=== PATIENT | male | born 1955 | race Caucasian/White ===

== ENCOUNTER 2019-07-09 14:26 | Outpatient (CLI) | payer MEDICARE ==
--- NOTE | 2019-07-10 00:04 | XRAY Report ---
Reason: GASTRO-ESOPHAGEAL REFLUX DISEASE WITH ESOPHAGITIS Procedure Date: 07/09/2019 Accession Number: [id number] / [id number] Procedure: XRN - Chest 2 View X-Ray CPT Code: 87025 FULL RESULT: EXAM: CHEST RADIOGRAPHY EXAM DATE: 07/09/2019 02:41 PM. CLINICAL HISTORY: GASTRO-ESOPHAGEAL REFLUX DISEASE WITH ESOPHAGITIS. COMPARISON: CHEST 2 VIEW PA/LAT 12/30/2015 9:18 AM. TECHNIQUE: 2 views. FINDINGS: Lungs/Pleura: No focal opacities evident. No pleural effusion. No pneumothorax. Normal volumes. Mediastinum: Heart and mediastinal contours are unremarkable. Other: Mild T8 compression deformity, appears chronic. IMPRESSION: No acute cardiopulmonary disease seen. RADIA
== END 2019-07-09 14:27 | disposition home or self-care (01) ==
LOC: DI.N 14:26
PROVIDERS: ATTEND Internal Medicine
DX: R69 Illness, unspecified (principal); K21.0 Gastro-esophageal reflux disease with esophagitis
CPT/HCPCS: 71046

== ENCOUNTER 2019-12-25 21:23 | Emergency (ER) | payer MEDICARE, OTHER ==
[2019-12-25] MEDS ORDERED: IPRATROPIUM/ALBUTEROL 3 ML NEB INH STA (21:41)
[2019-12-25] MEDS ORDERED: BENZONATATE 100 MG CAPSULE PO STA (21:41)
[2019-12-25] MEDS ORDERED: ALBUTEROL NEB 2.5 MG/3 ML INH STA ×2 (21:41→22:28)
[2019-12-25] MEDS ORDERED: guaiFENesin 600 MG TABLET PO ONE (21:55)
[2019-12-25] MEDS ORDERED: guaiFENesin 600 MG TABLET PO SCH (22:00)
[2019-12-25] MEDS ORDERED: predniSONE 20 MG TABLET PO STA (22:27)
--- NOTE | 2019-12-25 23:10 | ED Physician Documentation ---
History of Present Illness - Stated complaint Stated Complaint: SOA/CHOKING - Chief complaint Chief Complaint: Resp - History obtained from History obtained from: Patient (Patient Presented emergency room with 3 weeks long respiratory problem including cough congestion. He has been seen by and diagnosed with bronchitis. Chest x-ray was done on Sunday and was told to be negative. Patient went to antibiotic, the cough is not improved. Today and yesterday it has been severe coughing spell the patient almost gag. In emergency room patient is able to talk to me very clearly with no respiratory distress. There has been no fever no chills. No nausea no vomiting. Cough is worse in the morning and evening.), Family - History of Present Illness Timing: How many weeks ago (3) Review of Systems Ten Systems: 10 systems reviewed and negative Constitutional: reports: Reviewed and negative. denies: Fever Eyes: reports: Reviewed and negative Ears: reports: Reviewed and negative Nose: reports: Reviewed and negative Throat: reports: Reviewed and negative Cardiac: reports: Reviewed and negative Respiratory: reports: Cough GI: reports: Reviewed and negative : reports: Reviewed and negative Skin: reports: Reviewed and negative Musculoskeletal: reports: Reviewed and negative Neurologic: reports: Reviewed and negative Psychiatric: reports: Reviewed and negative Endocrine: reports: Reviewed and negative Immunocompromised: reports: Reviewed and negative PD PAST MEDICAL HISTORY - Past Medical History Cardiovascular: Hypertension, High cholesterol Respiratory: Pneumonia Endocrine/Autoimmune: None : Benign prostate hypertrophy Psych: None Musculoskeletal: None Derm: None - Past Surgical History Past Surgical History: Yes Ortho: Spine surgery - Present Medications Home Medications: Ambulatory Orders Medication Instructions Recorded Confirmed Aspirin Chewable [St Bradley 81 mg PO DAILY 12/25/19 12/25/19 Aspirin] Lisinopril [Zestril] 2.5 mg PO DAILY 12/25/19 12/25/19 Metoprolol Succinate [Toprol Xl] 25 mg PO DAILY 12/25/19 12/25/19 Rosuvastatin Calcium [Crestor] 5 mg PO DAILY 12/25/19 12/25/19 hydroCHLOROthiazide 12.5 mg PO DAILY 12/25/19 12/25/19 [Hydrochlorothiazide] Albuterol Sulf [Ventolin Hfa 60 puffs INH Q4HR #1 inhaler 12/26/19 Inhaler] Benzonatate [Tessalon Perle] 200 mg PO BID #30 capsule 12/26/19 Methylprednisolone [Medrol Dose 1 each PO .PACKAGEINSTRUCTIONS 6 12/26/19 Pack] Days #1 each diphenhydrAMINE [Benadryl] 50 mg PO HS #30 capsule 12/26/19 - Allergies Allergies/Adverse Reactions: Allergies Allergy/AdvReac Type Severity Reaction Status Date / Time No Known Drug Allergies Allergy Verified 12/25/19 21:29 - Social History Does the pt smoke?: No Smoking Status: Never smoker Does the pt drink ETOH?: Yes Does the pt have substance abuse?: No - Immunizations Immunizations are current?: Yes - POLST Patient has POLST: No PD ED PE NORMAL - Vitals Vital signs reviewed: Yes - General General: Alert and oriented X 3, No acute distress - HEENT HEENT: Atraumatic, PERRL, EOMI - Neck Neck: Supple, no meningeal sign, No bony TTP, No adenopathy - Cardiac Cardiac: RRR, No murmur - Respiratory Respiratory: Other (Bilateral inspiratory and expiratory wheezes, no dullness to percussion,) - Abdomen Abdomen: Normal bowel sounds, Soft, Non tender, Non distended - Derm Derm: Warm and dry - Extremities Extremities: No deformity - Neuro Neuro: Alert and oriented X 3 - Psych Psych: Normal mood, Normal affect Results - Vitals Vitals: Vital Signs - 24 hr 12/25/19 12/25/19 12/25/19 21:26 21:55 22:01 Temperature 36.6 C Heart Rate 94 88 96 Respiratory 18 18 18 Rate Blood Pressure 144/85 H O2 Saturation 95 12/25/19 12/25/19 12/25/19 22:41 23:01 23:41 Temperature Heart Rate 101 H 95 103 H Respiratory 18 18 Rate Blood Pressure 138/69 H O2 Saturation 94 93 12/26/19 12/26/19 00:16 00:24 Temperature Heart Rate 94 96 Respiratory 18 17 Rate Blood Pressure 132/76 H O2 Saturation 97 Oxygen O2 Source Room air PD MEDICAL DECISION MAKING - ED course Complexity details: d/w patient, d/w family ED course: This patient has been with 3 weeks of prolonged cough. My examination there is inspiratory and expiratory wheezes. He is given impression of reactive airway disease secondary to upper respiratory tract infection. X-ray was done 2 days ago and was "negative". I do not see the need for x-ray today He has been receiving DuoNeb albuterol x3. Over the management emergency room for 2 hours, his cough is still improved. He's never- in his respiratory distress. He is given impression number reactive airway disease. He will be given prescription of Medrol Dosepak, albuterol MDI inhaler and instructed to use with a spacer, Tessalon Perles,. He is asked to follow with his primary care doctor for further management. We also talked about cough drops which can may act as a distractor to the cough reflex and pharyngeal reflex. If there is further distress, return to the emergency room for further management. Patient is reassessed at 1150. His breathing has improve although according to him, "it is coming back". I have reassessed his lung and he does still have bilateral wheezes during deep inspiration and expiration. We will repeat a dose of DuoNeb, albuterol, and add Benadryl 50 mg, ibuprofen 800 mg. Patient is reassessed at 1230, at this time he is feeling much improved. He is almost ready to go home. We talked about MDI inhaler with a spacer. We talked about taking Medrol Dosepak and follow-up with primary care doctor. If there is respiratory distress, he is to come back to the emergency room immediately for further management. Departure - Departure Disposition: 01 Home, Self Care Clinical Impression: Reactive airway disease Qualifiers: Asthma severity: moderate Asthma persistence: persistent Asthma complication type: uncomplicated Qualified Code(s): J45.40 - Moderate persistent asthma, uncomplicated Condition: Stable Instructions: ED Reactive Airway Disease Prescriptions: Albuterol Sulf [Ventolin Hfa Inhaler] 60 puffs INH Q4HR #1 inhaler Benzonatate [Tessalon Perle] 200 mg PO BID #30 capsule diphenhydrAMINE [Benadryl] 50 mg PO HS #30 capsule Methylprednisolone [Medrol Dose Pack] 1 each PO .PACKAGEINSTRUCTIONS 6 Days #1 each Comments: Please take your steroid package, albuterol with a spacer, Benadryl, and follow- up with your primary care doctor in the next 3 to 5 days for reevaluation. If there is respiratory distress, return to the emergency room immediately.
[2019-12-25] MEDS ORDERED: IPRATROPIUM/ALBUTEROL 3 ML NEB INH PRN (23:50)
[2019-12-25] MEDS ORDERED: ALBUTEROL NEB 2.5 MG/3 ML INH ONE (23:50)
[2019-12-25] MEDS ORDERED: diphenhydrAMINE 25 MG CAPSULE PO STA (23:51)
[2019-12-25] MEDS ORDERED: IBUPROFEN 800 MG TABLET PO STA (23:51)
[2019-12-26 00:25] VITALS: BP 132/76
== END 2019-12-26 00:45 | disposition home or self-care (01) ==
LOC: ED 21:23
DX: J45.40 Moderate persistent asthma, uncomplicated (principal); J06.9 Acute upper respiratory infection, unspecified; I10 Essential (primary) hypertension; Z79.82 Long term (current) use of aspirin
CPT/HCPCS: 94640; 96361; 96374; 96375; 99284; A9270; J7512

== ENCOUNTER 2020-01-19 12:57 | Outpatient (CLI) | payer MEDICARE, OTHER | END 2020-01-19 12:58 | disposition critical access hospital (66) | LOC: EMS 12:57 | PROVIDERS: ATTEND Surgery | DX: M54.9 Dorsalgia, unspecified (principal); R05 Cough | CPT/HCPCS: A0425; A0429 ==

== ENCOUNTER 2020-01-19 13:11 | Emergency (ER) | payer MEDICARE, OTHER ==
[2020-01-19 13:16] VITALS: BP 157/80
--- NOTE | 2020-01-19 13:50 | XRAY Report ---
Reason: felt a pop after a coughing fit Procedure Date: 01/19/2020 Accession Number: [id number] / [id number] Procedure: XR - Ribs w/PA Chest RT CPT Code: Final Report FULL RESULT: EXAM: RIGHT RIB RADIOGRAPHY EXAM DATE: 01/19/2020 01:32 PM. CLINICAL HISTORY: Collins a pop after a coughing fit. COMPARISON: CHEST 2 VIEW 07/09/2019 2:45 PM. TECHNIQUE: 1 view of the chest and 2 views of the ribs. FINDINGS: Bones: Normal. No fracture or bone lesion. Lungs: No focal opacities. No pneumothorax. No pleural effusions. Mediastinum: Heart size is normal. There is mild aortic tortuosity. Other: None. IMPRESSION: No rib fracture or pneumothorax. RADIA
[2020-01-19] MEDS ORDERED: oxyCODONE 5 MG TABLET PO STA (16:58)
--- NOTE | 2020-01-19 17:07 | ED Physician Documentation ---
History of Present Illness - Stated complaint Stated Complaint: BACK PX - Chief complaint Chief Complaint: Back Pain - History obtained from History obtained from: Patient, Family - History of Present Illness Timing: Today Pain level max: 7 Pain level now: 7 Improved by: rest Worsened by: movement - Additonal information Additional information: Patient states that he was coughing today when he felt a pop in the posterior right Aspect of his ribs. Worse with movement and better with rest. Did not take anything for the pain. No numbness or tingling. No midline back pain. No loss of bowel or bladder control. Review of Systems Constitutional: denies: Fever, Chills Cardiac: denies: Palpitations Respiratory: reports: Cough (for 2 monts). denies: Wheezing GI: denies: Vomiting, Diarrhea : denies: Incontinent Skin: denies: Rash Musculoskeletal: denies: Neck pain, Back pain Neurologic: denies: Focal weakness, Numbness PD PAST MEDICAL HISTORY - Past Medical History Past Medical History: Yes Cardiovascular: Hypertension, High cholesterol Respiratory: Pneumonia Endocrine/Autoimmune: None : Benign prostate hypertrophy Psych: None Musculoskeletal: None Derm: None - Past Surgical History Past Surgical History: Yes Ortho: Spine surgery - Present Medications Home Medications: Ambulatory Orders Medication Instructions Recorded Confirmed Aspirin Chewable [St Bradley 81 mg PO DAILY 12/25/19 12/25/19 Aspirin] Lisinopril [Zestril] 2.5 mg PO DAILY 12/25/19 12/25/19 Metoprolol Succinate [Toprol Xl] 25 mg PO DAILY 12/25/19 12/25/19 Rosuvastatin Calcium [Crestor] 5 mg PO DAILY 12/25/19 12/25/19 hydroCHLOROthiazide 12.5 mg PO DAILY 12/25/19 12/25/19 [Hydrochlorothiazide] Albuterol Sulf [Ventolin Hfa 60 puffs INH Q4HR #1 inhaler 12/26/19 Inhaler] Benzonatate [Tessalon Perle] 200 mg PO BID #30 capsule 12/26/19 Methylprednisolone [Medrol Dose 1 each PO .PACKAGEINSTRUCTIONS 6 12/26/19 Pack] Days #1 each diphenhydrAMINE [Benadryl] 50 mg PO HS #30 capsule 12/26/19 Cyclobenzaprine [Flexeril] 10 mg PO TID PRN #20 tablet 01/19/20 Oxycodone HCl/Acetaminophen 1 - 2 each PO Q6H PRN #14 tablet 01/19/20 [Percocet 5-325 mg Tablet] - Allergies Allergies/Adverse Reactions: Allergies Allergy/AdvReac Type Severity Reaction Status Date / Time No Known Drug Allergies Allergy Verified 01/19/20 13:16 - Social History Does the pt smoke?: No Smoking Status: Never smoker Does the pt drink ETOH?: Yes Does the pt have substance abuse?: No - Immunizations Immunizations are current?: Yes - POLST Patient has POLST: No PD ED PE NORMAL - Vitals Vital signs reviewed: Yes - General General: Alert and oriented X 3, No acute distress - HEENT HEENT: Moist mucous membranes - Neck Neck: Supple, no meningeal sign - Cardiac Cardiac: RRR - Respiratory Respiratory: No respiratory distress, Clear bilaterally, Other (TTP posterior R ribs. no ecchymosis or crepitus) - Abdomen Abdomen: Soft, Non tender, Non distended - Back Back: No spinal TTP - Derm Derm: Warm and dry - Extremities Extremities: No calf tenderness / cord, Other (Normal bilateral lower extremity patellar and ankle jerk reflexes. Normal great toe extension bilaterally. no saddle anesthesia) - Neuro Neuro: Alert and oriented X 3, No motor deficit, No sensory deficit - Psych Psych: Normal mood, Normal affect Results - Vitals Vitals: Vital Signs - 24 hr 01/19/20 13:11 Temperature 36.6 C Heart Rate 65 Respiratory 18 Rate Blood Pressure 157/80 H O2 Saturation 97 Oxygen O2 Source Room air - Rads (name of study) rib xray Radiology: Prelim report reviewed, EMP read contemporaneously, See rad report (No acute abnormality) PD MEDICAL DECISION MAKING - ED course Complexity details: reviewed results, re-evaluated patient, considered differential, d/w patient, d/w family ED course: Patient with likely minor rib fracture. We will place him on pain medication for home. No midline tenderness. No crepitus or ecchymosis. Pneumothorax. Patient and family counseled regarding signs and symptoms for which I believe and urgent re-evaluation would be necessary. Patient with good understanding of and agreement to plan and is comfortable going home at this time This document was made in part using voice recognition software. While efforts are made to proofread this document, sound alike and grammatical errors may occur. Departure - Departure Disposition: 01 Home, Self Care Clinical Impression: Rib pain on right side Condition: Good Instructions: ED Contusion Vs Minor Fx Rib Follow-Up: JAN JOEL DO [Primary Care Provider] - Within 1 week Prescriptions: Cyclobenzaprine [Flexeril] 10 mg PO TID PRN #20 tablet PRN Reason: Spasms Oxycodone HCl/Acetaminophen [Percocet 5-325 mg Tablet] 1 - 2 each PO Q6H PRN #14 tablet PRN Reason: pain Comments: Return if you worsen. Follow-up with your doctor for further care. Continue to take a deep breath and hold it at least every hour at home. Do not drink alcohol or drive while on narcotic pain medicine. Note that many narcotic pain relievers also contain tylenol/acetaminophen. Please ensure that your total dose of acetaminophen from all sources does not exceed 3 grams (3000mg) per day. You may constipated on this medication, take a stool softener such as "Colace" twice a day while you are on it. Also recommend a [id number] laxative such as senna or MiraLAX any day that you do not have a bowel movement. If you received narcotic pain medication in the emergency department, do not drive or operate machinery for the next 24 hours. Discharge Date/Time: 01/19/20 17:22
== END 2020-01-19 17:22 | disposition home or self-care (01) ==
LOC: EDUNIT# → ED 13:11
DX: R07.81 Pleurodynia (principal); I10 Essential (primary) hypertension
CPT/HCPCS: 71101; 99283; 99284; A9270

== ENCOUNTER 2021-05-04 15:27 | Outpatient (CLI) | payer MEDICARE, OTHER | END 2021-05-04 15:28 | disposition home or self-care (01) | LOC: COV 15:27 | PROVIDERS: ATTEND Family Medicine | DX: Z20.822 Contact with and (suspected) exposure to COVID-19 (principal) ==

== ENCOUNTER 2021-06-09 07:40 | Outpatient (CLI) | payer MEDICARE, OTHER ==
[2021-06-10 11:46] LABS: BASOPHILS # (AUTO) 0.1 10^3/uL (0.0-0.1); BASOPHILS % (AUTO) 1.3 %; EOSINOPHILS # (AUTO) 0.3 10^3/uL (0.0-0.7); EOSINOPHILS % (AUTO) 5.3 %; HCT - HEMATOCRIT 41.2 % (42.0-52.0); LYMPHOCYTES # (AUTO) 0.9 10^3/uL (1.5-3.5); LYMPHOCYTES % (AUTO) 19.5 %; MEAN CORPUSCULAR HEMOGLOBIN 32.2 pg (27.0-31.0); MEAN CORPUSCULAR VOLUME 94.7 fL (80.0-94.0); MEAN PLATELET VOLUME 10.6 fL (7.4-11.4); MONOCYTES # (AUTO) 0.4 10^3/uL (0.0-1.0); MONOCYTES % (AUTO) 8.8 %; NEUTROPHILS # (AUTO) 3.1 10^3/uL (1.5-6.6); NEUTROPHILS % (AUTO) 64.7 %; PLT - PLATELET COUNT 178 10^3/uL (130-450); RED BLOOD COUNT 4.35 10^6/uL (4.70-6.10); RED CELL DISTRIBUTION WIDTH 12.9 % (12.0-15.0); WHITE BLOOD COUNT 4.8 x10^3/uL (4.8-10.8)
[2021-06-10 12:19] LABS: ALBUMIN 4.1 g/dL (3.2-5.5); ALBUMIN/GLOBULIN RATIO 1.3 (1.0-2.2); ALKALINE PHOSPHATASE 42 IU/L (42-121); ALT ALANINE AMINOTRANSFERASE 20 IU/L (10-60); AST ASPARTATE AMINOTRANSFERASE 24 IU/L (10-42); BUN - BLOOD UREA NITROGEN 26 mg/dL (6-20); CALCIUM 8.9 mg/dL (8.5-10.3); CARBON DIOXIDE - CO2 28 mmol/L (21-32); CHLORIDE 101 mmol/L (101-111); CHOL/HDL RATIO 3.1 (<5.0); CHOLESTEROL 184 mg/dL; CREATININE 1.2 mg/dL (0.6-1.2); GFR - MDRD 60 (>89); GLUCOSE 115 mg/dL (70-100); HDL CHOLESTEROL 59 mg/dL; LDL CHOLESTEROL,CALCULATED 110 mg/dL; LDL/HDL RATIO 1.9 (<3.6); POTASSIUM 4.4 mmol/L (3.5-5.0); SODIUM 137 mmol/L (135-145); TOTAL PROTEIN 7.2 g/dL (6.7-8.2); TRIGLYCERIDES 74 mg/dL; VLDL CHOLESTEROL 15 mg/dL
[2021-06-10 12:28] LABS: THYROID STIMULATING HORMONE 1.7 uIU/mL (0.34-5.60)
== END 2021-06-10 23:59 | disposition home or self-care (01) ==
LOC: LAB.WCP 07:40
PROVIDERS: ATTEND Physician Assistant Medical
DX: I10 Essential (primary) hypertension (principal); E78.5 Hyperlipidemia, unspecified; Z12.5 Encounter for screening for malignant neoplasm of prostate; I48.0 Paroxysmal atrial fibrillation
CPT/HCPCS: 36415; 80053; 80061; 84443; 85025; G0103; 83721; 84153

== ENCOUNTER 2021-08-24 07:31 | Outpatient (CLI) | payer MEDICARE, OTHER | END 2021-08-24 07:32 | disposition EMS.NT | LOC: EMS 07:31 | DX: I49.9 Cardiac arrhythmia, unspecified (principal) ==

== ENCOUNTER 2021-10-14 07:56 | Outpatient (CLI) | payer MEDICARE, OTHER ==
[2021-10-14 12:06] LABS: BASOPHILS # (AUTO) 0.1 10^3/uL (0.0-0.1); BASOPHILS % (AUTO) 1.6 %; EOSINOPHILS # (AUTO) 0.2 10^3/uL (0.0-0.7); EOSINOPHILS % (AUTO) 4.6 %; HCT - HEMATOCRIT 40.6 % (42.0-52.0); HGB - HEMOGLOBIN 13.8 g/dL (14.0-18.0); LYMPHOCYTES # (AUTO) 1.1 10^3/uL (1.5-3.5); LYMPHOCYTES % (AUTO) 24.5 %; MEAN CORPUSCULAR VOLUME 94.2 fL (80.0-94.0); MEAN PLATELET VOLUME 10.3 fL (7.4-11.4); MONOCYTES # (AUTO) 0.5 10^3/uL (0.0-1.0); MONOCYTES % (AUTO) 10.4 %; NEUTROPHILS # (AUTO) 2.5 10^3/uL (1.5-6.6); NEUTROPHILS % (AUTO) 58.7 %; PLT - PLATELET COUNT 200 10^3/uL (130-450); RED BLOOD COUNT 4.31 10^6/uL (4.70-6.10); RED CELL DISTRIBUTION WIDTH 12.8 % (12.0-15.0); WHITE BLOOD COUNT 4.3 x10^3/uL (4.8-10.8)
[2021-10-14 12:31] LABS: ALBUMIN/GLOBULIN RATIO 1.2 (1.0-2.2); ALKALINE PHOSPHATASE 45 IU/L (42-121); ALT ALANINE AMINOTRANSFERASE 16 IU/L (10-60); AST ASPARTATE AMINOTRANSFERASE 22 IU/L (10-42); BILIRUBIN,TOTAL 0.7 mg/dL (0.2-1.0); BUN - BLOOD UREA NITROGEN 27 mg/dL (6-20); CALCIUM 8.7 mg/dL (8.5-10.3); CARBON DIOXIDE - CO2 26 mmol/L (21-32); CHLORIDE 106 mmol/L (101-111); CREATININE 1.2 mg/dL (0.6-1.2); GFR - MDRD 60 (>89); GLUCOSE 99 mg/dL (70-100); POTASSIUM 4.4 mmol/L (3.5-5.0); SODIUM 137 mmol/L (135-145); TOTAL PROTEIN 7.3 g/dL (6.7-8.2)
[2021-10-14 12:52] LABS: CRP - C-REACTIVE PROTEIN < 1.0 mg/dL (0-1.0)
== END 2021-10-14 23:59 | disposition home or self-care (01) ==
LOC: LAB.WCP 07:56
PROVIDERS: ATTEND Physician Assistant Medical
DX: R20.2 Paresthesia of skin (principal)
CPT/HCPCS: 36415; 80053; 82607; 85025; 85651; 86140

== ENCOUNTER 2021-11-08 07:45 | Outpatient (CLI) | payer MEDICARE, OTHER ==
[2021-11-08] MEDS ORDERED: GADOBUTROL 10 MMOL/10 ML VIAL ONE (08:02)
--- NOTE | 2021-11-08 14:51 | MRI Report ---
PROCEDURE: Brain W/WO INDICATIONS: LEFT FACIAL PARESTHESIA CONTRAST: IV CONTRAST: Gadavist ml: 9.7 TECHNIQUE: Noncontrast axial T1 spin echo, axial T2 fast spin echo, sagittal and axial FLAIR, coronal T2 fast sp in echo, axial gradient echo, axial diffusion and ADC through the brain. After the administration of contrast, axial and coronal T1 spin echo with fat saturation through the brain. COMPARISON: None. FINDINGS: Image quality: Excellent. CSF spaces: Basal cisterns are patent. No extra-axial fluid collections. Ventricles are normal in size and shape. Brain: No midline shift. No intracranial bleeds or masses. No abnormal intracranial enhancement. There is minimal age-appropriate brain parenchymal volume loss. The brainstem appears normal. Diffus ion-weighted images demonstrate no acute ischemic insults. No chronic ischemic insults. Normal intr avascular flow voids are present. Skull and face: Calvarial marrow is normal in signal. Orbits appear normal. Sinuses: Sinuses and mastoids appear clear. IMPRESSION: Normal age appropriate MRI of the brain. Reviewed by: Monroe Palm MD on 11/08/2021 2:50 PM PST Approved by: Monroe Palm MD on 11/08/2021 2:50 PM PST Station ID: [id number]
[2021-11-08] MEDS ORDERED: GADOBUTROL 10 MMOL/10 ML VIAL IVP ONE (16:29)
== END 2021-11-08 07:46 | disposition home or self-care (01) ==
LOC: DI 07:45
PROVIDERS: ATTEND Physician Assistant Medical
DX: R20.2 Paresthesia of skin (principal)
CPT/HCPCS: 70553; A9585

== ENCOUNTER 2021-12-21 08:00 | Outpatient (CLI) | payer MEDICARE, OTHER ==
[2021-12-21 12:27] LABS: ALBUMIN 4.5 g/dL (3.2-5.5); ALBUMIN/GLOBULIN RATIO 1.3 (1.0-2.2); ALKALINE PHOSPHATASE 44 IU/L (42-121); ALT ALANINE AMINOTRANSFERASE 22 IU/L (10-60); AST ASPARTATE AMINOTRANSFERASE 24 IU/L (10-42); BILIRUBIN,TOTAL 0.8 mg/dL (0.2-1.0); BUN - BLOOD UREA NITROGEN 25 mg/dL (6-20); CARBON DIOXIDE - CO2 26 mmol/L (21-32); CHLORIDE 104 mmol/L (101-111); CHOL/HDL RATIO 2.7 (<5.0); CHOLESTEROL 176 mg/dL; CREATININE 1.1 mg/dL (0.6-1.2); GFR - MDRD 67 (>89); GLUCOSE 102 mg/dL (70-100); HDL CHOLESTEROL 65 mg/dL; LDL CHOLESTEROL,CALCULATED 99 mg/dL; LDL/HDL RATIO 1.5 (<3.6); POTASSIUM 4.4 mmol/L (3.5-5.0); SODIUM 136 mmol/L (135-145); TOTAL PROTEIN 7.9 g/dL (6.7-8.2); TRIGLYCERIDES 62 mg/dL; VLDL CHOLESTEROL 12 mg/dL
== END 2021-12-21 23:59 | disposition home or self-care (01) ==
LOC: LAB.WCP 08:00
PROVIDERS: ATTEND Physician Assistant Medical
DX: E78.5 Hyperlipidemia, unspecified (principal)
CPT/HCPCS: 36415; 80053; 80061; 83721

== ENCOUNTER 2022-09-07 07:23 | Outpatient (CLI) | payer MEDICARE, OTHER ==
[2022-09-07 12:33] LABS: ALBUMIN/GLOBULIN RATIO 1.3 (1.0-2.2); ALKALINE PHOSPHATASE 42 IU/L (42-121); ALT ALANINE AMINOTRANSFERASE 20 IU/L (10-60); AST ASPARTATE AMINOTRANSFERASE 23 IU/L (10-42); BILIRUBIN,TOTAL 0.8 mg/dL (0.2-1.0); BUN - BLOOD UREA NITROGEN 25 mg/dL (6-20); CALCIUM 8.9 mg/dL (8.5-10.3); CARBON DIOXIDE - CO2 26 mmol/L (21-32); CHLORIDE 104 mmol/L (101-111); CHOL/HDL RATIO 2.7 (<5.0); CHOLESTEROL 175 mg/dL; CREATININE 1.2 mg/dL (0.6-1.2); GFR - MDRD 60 (>89); GLUCOSE 110 mg/dL (70-100); HDL CHOLESTEROL 66 mg/dL; LDL CHOLESTEROL,CALCULATED 96 mg/dL; LDL/HDL RATIO 1.5 (<3.6); POTASSIUM 4.5 mmol/L (3.5-5.0); SODIUM 136 mmol/L (135-145); TOTAL PROTEIN 7.2 g/dL (6.7-8.2); TRIGLYCERIDES 64 mg/dL; VLDL CHOLESTEROL 13 mg/dL
== END 2022-09-07 07:24 | disposition home or self-care (01) ==
LOC: LAB.N 07:23
PROVIDERS: ATTEND Physician Assistant Medical
DX: E78.5 Hyperlipidemia, unspecified (principal); Z12.5 Encounter for screening for malignant neoplasm of prostate
CPT/HCPCS: 36415; 80053; 80061; G0103; 83721; 84153

== ENCOUNTER 2022-11-25 10:25 | Outpatient (CLI) | payer MEDICARE, OTHER ==
--- NOTE | 2022-11-25 14:42 | XRAY Report ---
PROCEDURE: Abdomen 2 View X-Ray INDICATIONS: EPIGASTRIC PAIN TECHNIQUE: 2 views of the abdomen were acquired. COMPARISON: None FINDINGS: Surgical changes and devices: None. Bowel: No pneumoperitoneum. The bowel gas pattern is normal. Nonspecific gaseous distention of sma ll bowel left upper quadrant without air-fluid level Soft tissues: No masses; visualized solid organ contours appear normal in size. No suspicious abdom inal calcifications. Bones: No suspicious bony abnormalities. IMPRESSION: Nonspecific small bowel gaseous distention may reflect ileus or enteritis. No evidence o f obstruction Reviewed by: Cristopher Dyer MD on 11/25/2022 1:41 PM AKST Approved by: Cristopher Dyer MD on 11/25/2022 1:41 PM AKST Station ID: [id number]
== END 2022-11-25 10:26 | disposition home or self-care (01) ==
LOC: DI 10:25
PROVIDERS: ATTEND Physician Assistant Medical
DX: R10.13 Epigastric pain (principal)

== ENCOUNTER 2022-11-30 08:00 | Outpatient (CLI) | payer MEDICARE, OTHER ==
[2022-11-30 14:46] LABS: SARS-CoV-2 -RESP PCR PANEL NOT DETECTED
[2022-11-30 14:47] LABS: INFLUENZA A- RESP PCR PANEL NOT DETECTED; INFLUENZA B - RESP PCR PANEL NOT DETECTED; RSV- RESP PCR PANEL NOT DETECTED
== END 2022-11-30 23:59 | disposition home or self-care (01) ==
LOC: LAB.WCP 08:00
PROVIDERS: ATTEND Physician Assistant Medical
DX: J06.9 Acute upper respiratory infection, unspecified (principal); Z20.822 Contact with and (suspected) exposure to COVID-19
CPT/HCPCS: 87637

== ENCOUNTER 2022-12-06 14:20 | Outpatient (CLI) | payer MEDICARE, OTHER ==
--- NOTE | 2022-12-06 16:22 | XRAY Report ---
PROCEDURE: Chest 2 View X-Ray INDICATIONS: URI TECHNIQUE: 2 views of the chest were acquired. COMPARISON: 01/19/2020 FINDINGS: Surgical changes and devices: None. Lungs and pleura: No pleural effusions or pneumothorax. Lungs are clear. Mediastinum: Mediastinal contours are normal. Heart size is normal. Bones and chest wall: No suspicious bony abnormalities. Soft tissues appear unremarkable. IMPRESSION: No acute process. Reviewed by: Alexsandra Samano MD on 12/06/2022 4:21 PM PST Approved by: Alexsandra Samano MD on 12/06/2022 4:21 PM PST Station ID: [id number]
== END 2022-12-06 14:21 | disposition home or self-care (01) ==
LOC: DI 14:20
PROVIDERS: ATTEND Physician Assistant Medical
DX: J06.9 Acute upper respiratory infection, unspecified (principal)

== ENCOUNTER 2022-12-12 10:06 | Outpatient (CLI) | payer MEDICARE, OTHER ==
[2022-12-12 10:23] LABS: CREATININE 1.1 mg/dL (0.6-1.2)
[2022-12-12] MEDS ORDERED: DIATRIZOATE MEGLU/DIATRIZO SOD 30 ML BOTTLE PO ONE ×2 (10:32→15:32)
[2022-12-12] MEDS ORDERED: iohexoL-300 100 ML VIAL ONE (10:32)
--- NOTE | 2022-12-12 14:43 | CT Report ---
PROCEDURE: ABDOMEN/PELVIS W INDICATIONS: EPIGASTRIC PAIN CONTRAST: Omni 300 100ml TECHNIQUE: After the administration of oral and intravenous contrast, 5 mm thick sections acquired from the diap hragms to the symphysis. 5 mm thick coronal and sagittal reformats were acquired. For radiation dos e reduction, the following was used: automated exposure control, adjustment of mA and/or kV accordin g to patient size. COMPARISON: None. FINDINGS: Image quality: Excellent. ABDOMEN: Lung bases: Lung bases are clear. Heart size is normal. Solid organs: Liver and spleen are normal in size and enhancement. Gallbladder is unremarkable with out calcified gallstones. Biliary system is non dilated. Pancreas enhances normally. No adrenal no dules. Kidneys demonstrate normal size and enhancement, without hydronephrosis. Probable Bosniak 2 cyst of the lower pole of the left kidney measuring 3.5 x 3.3 x 5.5 cm. Peritoneum and bowel: Bowel loops demonstrate normal wall thickness and caliber. No free fluid or a ir. Nodes and vessels: No retroperitoneal or mesenteric adenopathy by size criteria. Aorta and inferior vena cava are normal in size. Miscellaneous: No ventral hernias. PELVIS: Genitourinary: Bladder wall thickness is normal. Miscellaneous: Small bilateral fat-containing inguinal hernias. No inguinal adenopathy. Bones: No suspicious bony lesions. No vertebral body compression fractures. IMPRESSION: 1. There are no findings that explain the patient's epigastric pain. There is no evidence of acute ab dominal process. 2. Probable Bosniak 2 cyst of the lower pole of the left kidney with maximum diameter of 5.5 cm. Reviewed by: Jaime Huerta MD on 12/12/2022 2:42 PM PST Approved by: Jaime Huerta MD on 12/12/2022 2:42 PM PST Station ID: [id number]
[2022-12-12] MEDS ORDERED: iohexoL-300 100 ML VIAL IVP ONE (15:32)
== END 2022-12-12 10:07 | disposition home or self-care (01) ==
LOC: LAB 10:06
PROVIDERS: ATTEND Physician Assistant Medical
DX: R10.13 Epigastric pain (principal); R10.32 Left lower quadrant pain; R93.422 Abnormal radiologic findings on diagnostic imaging of left kidney
CPT/HCPCS: 36415; 74177; 82565; Q9963; Q9967

== ENCOUNTER 2023-09-07 07:49 | Outpatient (CLI) | payer MEDICARE, OTHER ==
[2023-09-07 11:47] LABS: BASOPHILS # (AUTO) 0.1 10^3/uL (0.0-0.1); BASOPHILS % (AUTO) 0.8 %; EOSINOPHILS # (AUTO) 0.2 10^3/uL (0.0-0.7); EOSINOPHILS % (AUTO) 2.2 %; HCT - HEMATOCRIT 41.3 % (42.0-52.0); HGB - HEMOGLOBIN 14.3 g/dL (14.0-18.0); LYMPHOCYTES # (AUTO) 0.9 10^3/uL (1.5-3.5); LYMPHOCYTES % (AUTO) 9.3 %; MEAN CORPUSCULAR HEMOGLOBIN 32.2 pg (27.0-31.0); MEAN CORPUSCULAR HGB CONC 34.6 g/dL (32.0-36.0); MEAN PLATELET VOLUME 10.6 fL (7.4-11.4); MONOCYTES # (AUTO) 0.8 10^3/uL (0.0-1.0); MONOCYTES % (AUTO) 8.5 %; NEUTROPHILS # (AUTO) 7.3 10^3/uL (1.5-6.6); NEUTROPHILS % (AUTO) 78.8 %; PLT - PLATELET COUNT 221 10^3/uL (130-450); RED BLOOD COUNT 4.44 10^6/uL (4.70-6.10); RED CELL DISTRIBUTION WIDTH 12.9 % (12.0-15.0); WHITE BLOOD COUNT 9.3 x10^3/uL (4.8-10.8)
[2023-09-07 12:38] LABS: ALBUMIN 4.3 g/dL (3.2-5.5); ALBUMIN/GLOBULIN RATIO 1.4 (1.0-2.2); ALKALINE PHOSPHATASE 56 IU/L (42-121); ALT ALANINE AMINOTRANSFERASE 13 IU/L (10-60); AST ASPARTATE AMINOTRANSFERASE 16 IU/L (10-42); BILIRUBIN,TOTAL 0.5 mg/dL (0.2-1.0); BUN - BLOOD UREA NITROGEN 26 mg/dL (6-20); CARBON DIOXIDE - CO2 27 mmol/L (21-32); CHLORIDE 104 mmol/L (101-111); CHOL/HDL RATIO 3.2 (<5.0); CHOLESTEROL 181 mg/dL; CREATININE 1.2 mg/dL (0.6-1.3); GFR - MDRD 60 (>89); GLUCOSE 101 mg/dL (74-104); HDL CHOLESTEROL 57 mg/dL; LDL CHOLESTEROL,CALCULATED 106 mg/dL; LDL/HDL RATIO 1.9 (<3.6); POTASSIUM 4.7 mmol/L (3.5-4.5); SODIUM 136 mmol/L (135-145); TOTAL PROTEIN 7.3 g/dL (6.4-8.9); TRIGLYCERIDES 89 mg/dL (48-352); VLDL CHOLESTEROL 18 mg/dL
== END 2023-09-07 07:50 | disposition home or self-care (01) ==
LOC: LAB.N 07:49
PROVIDERS: ATTEND Physician Assistant Medical
DX: I10 Essential (primary) hypertension (principal); E78.5 Hyperlipidemia, unspecified
CPT/HCPCS: 36415; 80053; 80061; 83721; 85025

== ENCOUNTER 2023-09-17 13:39 | Emergency (ER) | payer MEDICARE, OTHER ==
[2023-09-17 13:53] VITALS: BP 135/80; O2SAT 97
--- NOTE | 2023-09-17 15:43 | ED Physician Documentation ---
PD HPI OPHTHO - Stated complaint Stated Complaint: BLURRED VISION - Chief complaint Chief Complaint: Heent - History obtained from History obtained from: Patient - History of Present Illness Timing - onset: How many hours ago (1), Today Timing - duration: Minutes Timing - details: Abrupt onset, Now resolved Location: Both Associated symptoms: Photophobia, Other (he noted jagged patterns of light, like lightening bolts, to the left lateral visual field of both eyes. No loss of visual field. No other symptoms. This lasted several minutes then stopped and he developed left sided headache.). No: Redness, Swelling, Loss of vision Contributing factors: No: Recent URI Similar symptoms before: Has not had sx before Recently seen: Not recently seen Review of Systems Constitutional: denies: Fever, Chills Nose: denies: Rhinorrhea / runny nose, Congestion Throat: denies: Sore throat Respiratory: denies: Cough Neurologic: denies: Focal weakness, Numbness, Altered mental status PD PAST MEDICAL HISTORY - Past Medical History Cardiovascular: Hypertension, High cholesterol Respiratory: Pneumonia Neuro: None (no history of migraines) Endocrine/Autoimmune: None : Benign prostate hypertrophy Psych: None Musculoskeletal: None Derm: None - Past Surgical History Past Surgical History: Yes Ortho: Spine surgery - Present Medications Home Medications: Ambulatory Orders Medication Instructions Recorded Confirmed Aspirin Chewable [St Bradley 81 mg PO DAILY 12/25/19 12/25/19 Aspirin] Lisinopril [Zestril] 2.5 mg PO DAILY 12/25/19 12/25/19 Metoprolol Succinate [Toprol Xl] 25 mg PO DAILY 12/25/19 12/25/19 Rosuvastatin Calcium [Crestor] 5 mg PO DAILY 12/25/19 12/25/19 hydroCHLOROthiazide 12.5 mg PO DAILY 12/25/19 12/25/19 [Hydrochlorothiazide] Albuterol Sulf [Ventolin Hfa 60 puffs INH Q4HR #1 inhaler 12/26/19 Inhaler] Benzonatate [Tessalon Perle] 200 mg PO BID #30 capsule 12/26/19 diphenhydrAMINE [Benadryl] 50 mg PO HS #30 capsule 12/26/19 methylPREDNISolone [Medrol Dose 1 each PO .PACKAGEINSTRUCTIONS 6 12/26/19 Pack] Days #1 each Cyclobenzaprine [Flexeril] 10 mg PO TID PRN #20 tablet 01/19/20 Oxycodone HCl/Acetaminophen 1 - 2 each PO Q6H PRN #14 tablet 01/19/20 [Percocet 5-325 mg Tablet] - Allergies Allergies/Adverse Reactions: Allergies Allergy/AdvReac Type Severity Reaction Status Date / Time No Known Drug Allergies Allergy Verified 09/17/23 13:43 - Social History Does the pt smoke?: No Smoking Status: Never smoker Does the pt drink ETOH?: Yes Does the pt have substance abuse?: No - Immunizations Immunizations are current?: Yes - POLST Patient has POLST: No PD ED PE NORMAL - Vitals Vital signs reviewed: Yes - General General: Alert and oriented X 3, No acute distress, Well developed/nourished, Other (temples not tender. ) - HEENT HEENT: PERRL, EOMI, Other (normal fundal exam and anterior chamber. IOP measures and was 14 right, 16 left. ) - Neck Neck: Supple, no meningeal sign, No adenopathy - Cardiac Cardiac: RRR, No murmur - Respiratory Respiratory: No respiratory distress, Clear bilaterally - Derm Derm: Normal color, Warm and dry - Neuro Neuro: Alert and oriented X 3, computer help desk specialist 2-12 intact, No motor deficit, No sensory deficit, Normal speech Results - Vitals Vitals: Oxygen O2 Source Room air - Rads (name of study) head CT Relevant Findings:: Prelim report reviewed (no acute iCH.), EMP independent interpretation of test PD Medical Decision Making - ED course Complexity details: reviewed results (head CT with consideration of ICH causing some visual cortex symptoms and then headache. This was nromal. ), considered differential (symptoms sound most likely an ocular migraine but he does not have history of migraines and unusual for new onset at older age. Consider ICH/petechial bleed and can get CT. Otherwise has nromal neuro exam here. ), d/w patient Departure - Departure Disposition: 01 Home, Self Care Clinical Impression: Visual field scotoma of both eyes, Ocular migraine Condition: Stable Record reviewed to determine appropriate education?: Yes Follow-Up: Clemencia Montalvo PA-C [Primary Care Provider] - Comments: The CT of your head appears normal. No signs of bleeding tumors or swelling. Your eye exam appears normal here. Your symptoms sound consistent with a ocular migraine. It is unusual to develop these new when older but does occur occasionally. I would see if you have any recurring episodes and follow-up with your primary care if you do otherwise it may be a random single occurrence. Follow-up or return to the ER if other symptoms develop as well. Forms: PCP List Discharge Date/Time: 09/17/23 17:14
[2023-09-17] MEDS ORDERED: ACETAMINOPHEN 325 MG TABLET PO STA (16:12)
--- NOTE | 2023-09-17 16:42 | CT Report ---
PROCEDURE: HEAD WO INDICATIONS: visual scotomata and then headache TECHNIQUE: Noncontrast 4.5 mm thick angled axial sections acquired from the foramen magnum to the vertex. For r adiation dose reduction, the following was used: automated exposure control, adjustment of mA and/or kV according to patient size. COMPARISON: MRI brain 11/08/2021 FINDINGS: Image quality: Excellent. The ventricular system and cortical sulci demonstrate atrophy, consistent for patient's stated age. There are areas of hypodensity in the periventricular and subcortical white matter. There is no acut e intra or extra-axial fluid collection. No acute hemorrhage, mass lesion or midline shift. Brainst em is unremarkable. Globes are symmetrical. Sinuses demonstrate minimal scattered areas of mucosal thickening. Osseous st ructures are intact. IMPRESSION: 1. No acute intracranial process. 2. Mild atrophy and chronic microvascular ischemic changes. Reviewed by: Destiny Montiel MD on 09/17/2023 4:40 PM PDT Approved by: Destiny Montiel MD on 09/17/2023 4:40 PM PDT Station ID: [id number]
== END 2023-09-17 17:14 | disposition home or self-care (01) ==
LOC: ED 13:39
DX: H53.413 Scotoma involving central area, bilateral (principal); G43.809 Other migraine, not intractable, without status migrainosus; I10 Essential (primary) hypertension
CPT/HCPCS: 99283; 99284

== ENCOUNTER 2023-12-24 09:39 | Outpatient (CLI) | payer MEDICARE ==
--- NOTE | 2023-12-24 20:26 | XRAY Report ---
PROCEDURE: Hand 3+V LT INDICATIONS: LEFT HAND PAIN TECHNIQUE: 3 views of the hand(s) acquired. COMPARISON: None. FINDINGS: Bones: No fractures or dislocations. Osteoarthritic changes are noted throughout left hand and wris t joints with joint space narrowing, subchondral sclerosis and marginal osteophyte formation more not ably involving trace calf joint and first CMC joint. No gross bony erosive changes are seen. No suspi cious bony lesions. Soft tissues: No suspicious soft tissue calcifications or masses. 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 No fractur e or dislocation. No gross bony erosive changes. Reviewed by: Tre Love MD on 12/24/2023 8:25 PM PST Approved by: Tre Love MD on 12/24/2023 8:25 PM PST Station ID: [id number]
== END 2023-12-24 09:40 | disposition home or self-care (01) ==
LOC: DI 09:39
PROVIDERS: ATTEND Physician Assistant Medical
DX: M19.042 Primary osteoarthritis, left hand (principal); M18.12 Unilateral primary osteoarthritis of first carpometacarpal joint, left hand; M19.032 Primary osteoarthritis, left wrist

== ENCOUNTER 2024-01-13 08:56 | Outpatient (CLI) | payer MEDICARE ==
--- NOTE | 2024-01-13 20:35 | Ultrasound Report ---
PROCEDURE: Renal (Retroperitoneal) INDICATIONS: RENAL CYST TECHNIQUE: Real-time scanning was performed of the retroperitoneal organs, with image documentation. COMPARISON: None. FINDINGS: Kidneys: Kidneys are normal in size. Right kidney measures 9.9 cm long; left kidney measures 11.8 c m long. Right renal cortical thickness is 0.6 cm; left renal cortical thickness is 0.7 cm. No solid masses, hydronephrosis, or nephrolithiasis. There is a simple left renal cyst which measures 4.1 x 3.2 x 3.3 cm. Bladder: Pre-void bladder volume is 168.7 mL. Post-void residual is 35.3 mL. Pre-void images demon strate no intraluminal masses or stones. On pre-void images, bilateral ureteral jets are noted with color Doppler interrogation. (Of note, ureteral jets may not be detectable in up to 25% of cases due to insufficient differences in specific gravity between ureteral and bladder urine). Miscellaneous: No free abdominal fluid. IMPRESSION: 1. Left renal cyst. 2. No hydronephrosis. 3. Moderate post void residual. Reviewed by: Soraya Singh MD on 01/13/2024 8:34 PM PST Approved by: Soraya Singh MD on 01/13/2024 8:34 PM PST Station ID: [id number]
== END 2024-01-13 08:57 | disposition home or self-care (01) ==
LOC: DI 08:56
PROVIDERS: ATTEND Physician Assistant Medical
DX: N28.1 Cyst of kidney, acquired (principal)

== ENCOUNTER 2024-01-23 08:15 | Outpatient (CLI) | payer MEDICARE, OTHER ==
--- NOTE | 2024-01-23 10:07 | XRAY Report ---
PROCEDURE: Ribs w/PA Chest 3+V LT INDICATIONS: RIB PAIN, LEFT SIDED TECHNIQUE: 3 views of the ribs were acquired, along with a single view chest. COMPARISON: X-ray chest 12/06/2022. FINDINGS: Surgical changes and devices: None. Bones and chest wall: Nondisplaced fracture of anterior lower rib, likely the eighth, only seen on t he frontal view Overlying soft tissues appear unremarkable. Lungs and pleura: No pleural effusions or pneumothorax. Lungs appear clear. Mediastinum: Mediastinal contours appear normal. Heart size is normal. IMPRESSION: Nondisplaced fracture of left anterior eighth rib Reviewed by: Bradley Mansfield MD on 01/23/2024 10:06 AM [facility] Approved by: Bradley Mansfield MD on 01/23/2024 10:06 AM PST Station ID: [id number]
== END 2024-01-23 08:30 | disposition home or self-care (01) ==
LOC: DI.N 08:15
PROVIDERS: ATTEND Nurse Practitioner
DX: S22.32XA Fracture of one rib, left side, initial encounter for closed fracture (principal)